=== PATIENT | female | born 1985 | race Caucasian/White ===

== ENCOUNTER → 2020-07-27 13:36 | Outpatient (CLI) | payer BC, SELFPAY ==
[2020-07-27 16:23] LABS: hCG Titer Quant., Serum < 1 mIU/mL (1-3)
== END ==
PROVIDERS: Referring Provider Obstetrics & Gynecology; Visit Provider Obstetrics & Gynecology
DX: Z32.01 Encounter for pregnancy test, result positive (principal)
CPT/HCPCS: 36415; 84702; 84703